=== PATIENT | female | born 2000 | race Caucasian/White ===

== ENCOUNTER 2020-12-22 11:22 | Emergency (ER) | payer SELFPAY ==
[2020-12-22] MEDS ORDERED: ONDANSETRON 4 MG/2 ML INJ IV ONE (11:57)
[2020-12-22] MEDS ORDERED: SODIUM CHLORIDE 0.9% 1000 ML 1,000 ML IV ONE ×2 (11:57→13:48)
--- NOTE | 2020-12-22 12:03 | Emergency Department Report ---
ED N/V/D HPI - General Chief complaint: Nausea/Vomiting/Diarrhea Stated complaint: NAUSEA,VOMITTING,DEYHDRATION Time Seen by Provider: 12/22/20 11:34 Source: patient Mode of arrival: Ambulatory Limitations: No Limitations - History of Present Illness Initial comments: The patient was evaluated in the emergency department for symptoms described in the history of present illness. He/she was evaluated in the context of the global COVID-19 pandemic, which necessitated consideration that the patient might be at risk for infection with the virus that causes COVID-19. Institutional protocols and algorithms that pertain to the evaluation of patients at risk for COVID-19 are in a state of rapid change based on information released by regulatory bodies including the CDC and federal and state organizations. These policies and algorithms were followed during the patient's care in the emergency department. Please note that these policies, procedures and recommendations changed on a rapid basis. 20-year-old -Marshallese female presents to the emergency room for acute on chronic nausea and vomiting for the last 4 days. Patient states she has been dealing with this off and on for about a year. Patient states she has recently moved here from [place] 2 weeks ago. She states her last menstrual. Was on the 17th of this month. She states she will have some abdominal cramping when she vomits. She denies any fever or chills. She states she has been taking the promethazine but not able to hold it down secondary to vomiting. 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 She does report a history of acid reflux. complaint: nausea, vomiting - Related Data Previous Rx's Medication Instructions Recorded Last Taken Type Ondansetron [Zofran Odt] 4 mg PO Q8HR #15 tab.rapdis 12/22/20 Unknown Rx Potassium Chloride [K-Dur] 10 meq PO QDAY #4 tablet 12/22/20 Unknown Rx Allergies Allergy/AdvReac Type Severity Reaction Status Date / Time No Known Allergies Allergy Unverified 12/22/20 11:38 ED Review of Systems ROS: Stated complaint: NAUSEA,VOMITTING,DEYHDRATION Other details as noted in HPI ED Past Medical Hx - Past Medical History Previous Medical History?: No - Surgical History Past Surgical History?: No - Social History Smoking Status: Former Smoker Substance Use Type: Alcohol, Marijuana - Medications Home Medications: Home Medications Medication Instructions Recorded Confirmed Last Taken Type Ondansetron [Zofran Odt] 4 mg PO Q8HR #15 tab.rapdis 12/22/20 Unknown Rx Potassium Chloride [K-Dur] 10 meq PO QDAY #4 tablet 12/22/20 Unknown Rx ED Physical Exam - General Limitations: No Limitations General appearance: alert, in no apparent distress - Head Head exam: Present: atraumatic, normocephalic - Eye Eye exam: Present: normal appearance - ENT ENT exam: Present: mucous membranes dry, normal external ear exam - Neck Neck exam: Present: normal inspection, full ROM - Respiratory Respiratory exam: Absent: respiratory distress, accessory muscle use - Cardiovascular Cardiovascular Exam: Present: regular rate, normal rhythm. Absent: systolic murmur, diastolic murmur, rubs, gallop - GI/Abdominal GI/Abdominal exam: Present: soft, normal bowel sounds - Back Exam Back exam: Present: normal inspection, full ROM - Neurological Exam Neurological exam: Present: alert, oriented X3, normal gait - Psychiatric Psychiatric exam: Present: normal affect, normal mood - Skin Skin exam: Present: warm, dry, intact, normal color. Absent: rash ED Course Vital Signs 12/22/20 12/22/20 11:36 15:06 Temperature 98.6 F 98.6 F Pulse Rate 74 64 Respiratory 16 16 Rate Blood Pressure 106/63 Blood Pressure 126/57 [Right] O2 Sat by Pulse 100 100 Oximetry ED Medical Decision Making - Lab Data Result diagrams: 12/22/20 12:03 12/22/20 12:03 - Medical Decision Making 20-year-old -Marshallese female presents to the emergency room for acute on chronic nausea and vomiting for the last 4 days. Patient states she has been dealing with this off and on for about a year. Patient states she has recently moved here from [place] 2 weeks ago. She states her last menstrual. Was on the 17th of this month. She states she will have some abdominal cramping when she vomits. She denies any fever or chills. She states she has been taking the promethazine but not able to hold it down secondary to vomiting. 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 She does report a history of acid reflux. IV, CBC CMP hCG normal saline IV Zofran. Critical care attestation.: If time is entered above; I have spent that time in minutes in the direct care of this critically ill patient, excluding procedure time. ED Disposition Clinical Impression: Hypokalemia, Dehydration Nausea and vomiting Qualifiers: Vomiting Intractability: intractable Disposition: 01 HOME / SELF CARE / HOMELESS Is pt being admited?: No Does the pt Need Aspirin: No Condition: Stable Instructions: Nausea and Vomiting, Adult, [id number], Dehydration, Adult, [id number] Additional Instructions: Please complete your potassium as prescribed. Zofran as needed. Follow-up in [facility] Prescriptions: Potassium Chloride [K-Dur] 10 meq PO QDAY #4 tablet Ondansetron [Zofran Odt] 4 mg PO Q8HR #15 tab.kavitha Referrals: [facility] [Provider Group] - 3-5 Days [facility] [Provider Group] - 3-5 Days Forms: Accompanied Note Time of Disposition: 15:19
[2020-12-22 12:35] LABS: Basophils # (Auto) 0.1 K/mm3 (0.0-0.1); Basophils % (Auto) 0.7 % (0.0-1.8); Eosinophils % (Auto) 0.1 % (0.0-4.3); Hematocrit 43.1 % (30.3-42.9); Hemoglobin 14.5 gm/dl (10.1-14.3); Lymphocytes # (Auto) 3.8 K/mm3 (1.2-5.4); Lymphocytes % (Auto) 28.8 % (13.4-35.0); Mean Corpuscular HGB Conc 34 % (30-34); Mean Corpuscular Volume 86 fl (79-97); Monocytes # (Auto) 0.7 K/mm3 (0.0-0.8); Monocytes % (Auto) 5.1 % (0.0-7.3); Platelet Count 373 K/mm3 (140-440); Red Cell Distribution Width 14.1 % (13.2-15.2)
[2020-12-22 12:52] LABS: Alanine Aminotransferase 13 units/L (7-56); Albumin 4.7 g/dL (3.9-5); BUN/Creatinine Ratio 9; Blood Urea Nitrogen 10 mg/dL (7-17); Calcium 9.7 mg/dL (8.4-10.2); Hemolysis Index 6
[2020-12-22] MEDS ORDERED: POTASSIUM CHLORIDE ER 20 MEQ TAB PO ONE (13:47)
[2020-12-22 15:10] VITALS: BP 126/57
== END 2020-12-22 15:30 | disposition home or self-care (01) ==
LOC: ED 11:22
DX: E87.6 Hypokalemia (principal); E86.0 Dehydration; R11.2 Nausea with vomiting, unspecified; Z87.891 Personal history of nicotine dependence; F10.20 Alcohol dependence, uncomplicated; F12.90 Cannabis use, unspecified, uncomplicated
CPT/HCPCS: 36415; 80053; 83690; 84702; 85025; 96361; 96374; 99283; J2405; J7030

== ENCOUNTER 2021-04-28 09:07 | Emergency (ER) | payer OTHER ==
[2021-04-28] MEDS ORDERED: METOCLOPRAMIDE 10 MG/2 ML INJ IV ONE (09:48)
[2021-04-28] MEDS ORDERED: SODIUM CHLORIDE 0.9% 1000 ML 1,000 ML IV ONE (09:48)
[2021-04-28] MEDS ORDERED: DICYCLOMINE 20 MG TAB PO ONE (09:48)
[2021-04-28] MEDS ORDERED: FAMOTIDINE 20 MG/2 ML INJ IV ONE (09:48)
[2021-04-28] MEDS ORDERED: diphenhydrAMINE 50 MG/ML VIAL IV ONE (09:48)
[2021-04-28] MEDS ORDERED: LIDOCAINE VISCOUS 2% 15 ML ORAL LIQD MM ONE (09:49)
[2021-04-28 10:36] LABS: Basophils # (Auto) 0.1 K/mm3 (0.0-0.1); Basophils % (Auto) 0.5 % (0.0-1.8); Eosinophils # (Auto) 0.1 K/mm3 (0.0-0.4); Eosinophils % (Auto) 0.5 % (0.0-4.3); Hematocrit 42.9 % (30.3-42.9); Hemoglobin 14.3 gm/dl (10.1-14.3); Lymphocytes # (Auto) 1.5 K/mm3 (1.2-5.4); Mean Corpuscular HGB Conc 33 % (30-34); Mean Corpuscular Volume 88 fl (79-97); Monocytes # (Auto) 0.2 K/mm3 (0.0-0.8); Monocytes % (Auto) 1.1 % (0.0-7.3); Platelet Count 350 K/mm3 (140-440); Red Blood Count 4.91 M/mm3 (3.65-5.03); Red Cell Distribution Width 13.8 % (13.2-15.2)
[2021-04-28 10:57] LABS: Alanine Aminotransferase 9 units/L (7-56); BUN/Creatinine Ratio 10; Blood Urea Nitrogen 8 mg/dL (7-17); Calcium 10.4 mg/dL (8.4-10.2); Hemolysis Index 4
[2021-04-28] MEDS ORDERED: POTASSIUM CHLORIDE ER 20 MEQ TAB PO ONE (11:14)
--- NOTE | 2021-04-28 11:18 | Emergency Department Report ---
ED N/V/D HPI - General Chief complaint: Nausea/Vomiting/Diarrhea Stated complaint: NAUSEA/DIZZINESS Time Seen by Provider: 04/28/21 09:45 Source: patient Mode of arrival: Ambulatory Limitations: No Limitations - History of Present Illness Initial comments: This is a 20-year-old female nontoxic, well nourished in appearance, no acute signs of distress presents to the ED with c/o of acute on chronic intermittent nausea and vomiting several days. Patient stated has promethazine and Zofran which she takes but has ran out. Patient describes vomiting as food content. Patient denies any abdominal pain, chest pain, short of breath, fever, chills, headache, stiff neck, numbness or tingling. Patient denies any diarrhea or constipation. Denies any blood in stool. Patient denies any recent travels. Patient denies any drug allergies. MD complaint: nausea, vomiting -: days(s) Description of Vomiting: food contents Associated Abdominal Pain: No Radiation: none Pain Scale: 0 Improves with: none Worsens with: none Associated Symptoms: nausea/vomiting. denies: myalgias, chest pain, cough, diaphoresis, fever/chills, headaches, loss of appetite, malaise, rash, dysuria, shortness of breath, syncope - Related Data Previous Rx's Medication Instructions Recorded Last Taken Type Ondansetron [Zofran Odt] 4 mg PO Q8HR #15 tab.rapdis 12/22/20 Unknown Rx Potassium Chloride [K-Dur] 10 meq PO QDAY #4 tablet 12/22/20 Unknown Rx Ondansetron [Zofran Odt] 4 mg PO Q8HR PRN #12 tab.rapdis 04/28/21 Unknown Rx Allergies Allergy/AdvReac Type Severity Reaction Status Date / Time No Known Allergies Allergy Unverified 12/22/20 11:38 ED Review of Systems ROS: Stated complaint: NAUSEA/DIZZINESS Other details as noted in HPI Comment: All other systems reviewed and negative Constitutional: denies: chills, fever Eyes: denies: eye pain, eye discharge, vision change ENT: denies: ear pain, throat pain Respiratory: denies: cough, shortness of breath, wheezing Cardiovascular: denies: chest pain, palpitations Endocrine: no symptoms reported Gastrointestinal: nausea, vomiting. denies: abdominal pain, diarrhea, constipation, hematemesis, melena, hematochezia Genitourinary: denies: urgency, dysuria, discharge Musculoskeletal: denies: back pain, joint swelling, arthralgia Skin: denies: rash, lesions Neurological: denies: headache, weakness, paresthesias Psychiatric: denies: anxiety, depression Hematological/Lymphatic: denies: easy bleeding, easy bruising ED Past Medical Hx - Past Medical History Previous Medical History?: Yes Additional medical history: Gastritis - Surgical History Past Surgical History?: No - Social History Smoking Status: Never Smoker Substance Use Type: Prescribed - Medications Home Medications: Home Medications Medication Instructions Recorded Confirmed Last Taken Type Ondansetron [Zofran Odt] 4 mg PO Q8HR #15 tab.rapdis 12/22/20 Unknown Rx Potassium Chloride [K-Dur] 10 meq PO QDAY #4 tablet 12/22/20 Unknown Rx Ondansetron [Zofran Odt] 4 mg PO Q8HR PRN #12 tab.rapdis 04/28/21 Unknown Rx ED Physical Exam - General Limitations: No Limitations General appearance: alert, in no apparent distress - Head Head exam: Present: atraumatic, normocephalic - Eye Eye exam: Present: normal appearance - Neck Neck exam: Present: normal inspection, full ROM. Absent: lymphadenopathy - Respiratory Respiratory exam: Present: normal lung sounds bilaterally. Absent: respiratory distress, wheezes, rales, rhonchi, stridor, chest wall tenderness, accessory muscle use, decreased breath sounds, prolonged expiratory - Cardiovascular Cardiovascular Exam: Present: regular rate, normal rhythm, normal heart sounds. Absent: bradycardia, tachycardia, irregular rhythm, systolic murmur, diastolic murmur, rubs, gallop - GI/Abdominal GI/Abdominal exam: Present: soft, normal bowel sounds. Absent: distended, tenderness, guarding, rebound, rigid - Extremities Exam Extremities exam: Present: full ROM - Back Exam Back exam: Present: normal inspection, full ROM. Absent: tenderness, CVA tenderness (R), CVA tenderness (L), muscle spasm, paraspinal tenderness, vertebral tenderness, rash noted - Neurological Exam Neurological exam: Present: alert, oriented X3, normal gait - Psychiatric Psychiatric exam: Present: normal affect, normal mood - Skin Skin exam: Present: warm, dry, intact, normal color. Absent: rash ED Course Vital Signs 04/28/21 09:24 Temperature 98.6 F Pulse Rate 52 L Respiratory 22 Rate Blood Pressure 127/82 Blood Pressure 127/82 [Right] O2 Sat by Pulse 100 Oximetry - Reevaluation(s) Reevaluation #1: 04/28/21 11:18 Patient is speaking in full sentences with no signs of distress noted. ED Medical Decision Making - Lab Data Result diagrams: 04/28/21 10:15 04/28/21 10:15 Lab Results 04/28/21 04/28/21 04/28/21 Range/Units 10:15 10:15 10:15 WBC 16.1 H (4.5-11.0) K/mm3 RBC 4.91 (3.65-5.03) M/mm3 Hgb 14.3 (10.1-14.3) gm/dl Hct 42.9 (30.3-42.9) % MCV 88 (79-97) fl MCH 29 (28-32) pg MCHC 33 (30-34) % RDW 13.8 (13.2-15.2) % Plt Count 350 (140-440) K/mm3 Lymph % (Auto) 9.0 L (13.4-35.0) % Howell % (Auto) 1.1 (0.0-7.3) % Eos % (Auto) 0.5 (0.0-4.3) % Baso % (Auto) 0.5 (0.0-1.8) % Lymph # (Auto) 1.5 (1.2-5.4) K/mm3 Howell # (Auto) 0.2 (0.0-0.8) K/mm3 Eos # (Auto) 0.1 (0.0-0.4) K/mm3 Baso # (Auto) 0.1 (0.0-0.1) K/mm3 Seg Neutrophils % 88.9 H (40.0-70.0) % Seg Neutrophils # 14.4 H (1.8-7.7) K/mm3 Sodium 138 (137-145) mmol/L Potassium 3.1 L (3.6-5.0) mmol/L Chloride 100.8 (98-107) mmol/L Carbon Dioxide 18 L (22-30) mmol/L Anion Gap 22 mmol/L BUN 8 (7-17) mg/dL Creatinine 0.8 (0.6-1.2) mg/dL Estimated GFR > 60 ml/min BUN/Creatinine Ratio 10 % Glucose 110 H (65-100) mg/dL Calcium 10.4 H (8.4-10.2) mg/dL Total Bilirubin 1.20 (0.1-1.2) mg/dL AST 15 (5-40) units/L ALT 9 (7-56) units/L Alkaline Phosphatase 68 (35-129) units/L Total Protein 9.1 H (6.3-8.2) g/dL Albumin 5.0 (3.9-5) g/dL Albumin/Globulin Ratio 1.2 % Lipase 10 L (13-60) units/L HCG, Qual Negative (Negative) Urine Color (Yellow) Urine Turbidity (Clear) Urine pH (5.0-7.0) Ur Specific [place] (1.003-1.030) Urine Protein (Negative) mg/dL Urine Glucose (UA) (Negative) mg/dL Urine Ketones (Negative) mg/dL Urine Blood (Negative) Urine Nitrite (Negative) Urine Bilirubin (Negative) Urine Urobilinogen (<2.0) mg/dL Ur Leukocyte Esterase (Negative) Urine WBC (Auto) (0.0-6.0) /HPF Urine RBC (Auto) (0.0-6.0) /HPF U Epithel Cells (Auto) (0-13.0) /HPF Urine Mucus /HPF 04/28/21 Range/Units 11:20 WBC (4.5-11.0) K/mm3 RBC (3.65-5.03) M/mm3 Hgb (10.1-14.3) gm/dl Hct (30.3-42.9) % MCV (79-97) fl MCH (28-32) pg MCHC (30-34) % RDW (13.2-15.2) % Plt Count (140-440) K/mm3 Lymph % (Auto) (13.4-35.0) % Howell % (Auto) (0.0-7.3) % Eos % (Auto) (0.0-4.3) % Baso % (Auto) (0.0-1.8) % Lymph # (Auto) (1.2-5.4) K/mm3 Howell # (Auto) (0.0-0.8) K/mm3 Eos # (Auto) (0.0-0.4) K/mm3 Baso # (Auto) (0.0-0.1) K/mm3 Seg Neutrophils % (40.0-70.0) % Seg Neutrophils # (1.8-7.7) K/mm3 Sodium (137-145) mmol/L Potassium (3.6-5.0) mmol/L Chloride (98-107) mmol/L Carbon Dioxide (22-30) mmol/L Anion Gap mmol/L BUN (7-17) mg/dL Creatinine (0.6-1.2) mg/dL Estimated GFR ml/min BUN/Creatinine Ratio % Glucose (65-100) mg/dL Calcium (8.4-10.2) mg/dL Total Bilirubin (0.1-1.2) mg/dL AST (5-40) units/L ALT (7-56) units/L Alkaline Phosphatase (35-129) units/L Total Protein (6.3-8.2) g/dL Albumin (3.9-5) g/dL Albumin/Globulin Ratio % Lipase (13-60) units/L HCG, Qual (Negative) Urine Color Yellow (Yellow) Urine Turbidity Clear (Clear) Urine pH 6.0 (5.0-7.0) Ur Specific [place] 1.016 (1.003-1.030) Urine Protein 30 mg/dl (Negative) mg/dL Urine Glucose (UA) Neg (Negative) mg/dL Urine Ketones 80 (Negative) mg/dL Urine Blood Neg (Negative) Urine Nitrite Neg (Negative) Urine Bilirubin Neg (Negative) Urine Urobilinogen < 2.0 (<2.0) mg/dL Ur Leukocyte Esterase Neg (Negative) Urine WBC (Auto) 8.0 H (0.0-6.0) /HPF Urine RBC (Auto) 2.0 (0.0-6.0) /HPF U Epithel Cells (Auto) 1.0 (0-13.0) /HPF Urine Mucus Few /HPF - Radiology Data [facility] [address] [place] [address] XRay Report Signed Patient: LORELEI CURRY MR#: [id number] : 2000 Acct:[id number] Age/Sex: 20 / F ADM Date: 04/28/21 Loc: ED Attending Dr: Ordering Physician: ROBBIN HERNANDEZ NP Date of Service: 04/28/21 Procedure(s): XR abd series w cxr 1V Accession Number(s): [id number] cc: ROBBIN HERNANDEZ NP Fluoro Time In Minutes: ABDOMEN 3 VIEW(S) INDICATION: Nausea with vomiting. COMPARISON: None available. FINDINGS: Bowel gas pattern: No significant abnormality. Free air: None seen. Stones: None seen. Chest: No acute findings. Additional Findings: No additional significant findings. IMPRESSION: 1. No acute findings. Signer Name: Kevin Williamson MD Signed: 04/28/2021 11:14 AM Workstation Name: [id number] Transcribed By: FLETCHER Dictated By: Kevin Williamson MD Electronically Authenticated By: Kevin Williamson MD Signed Date/Time: 04/28/21 111 DD/ 13 TD/TT: - Medical Decision Making This is a 20-year-old female that presents with nausea and vomiting. Patient is stable and was examined by me. There is no abdominal tenderness. Negative signs of symptoms of appendicitis, cholecystitis or acute abdomen. Labs obtained. UA obtained. Xr abdomen/chest xray obtained and dictated by the radiologist. Patient is notified of the report with no questions noted by the patient. Vital signs are stable prior to discharge. Patient received medical treatment in the ED which patient stated symptoms has resovled and subsided. A by mouth challenge has been obtained and patient tolerated well with no nausea vomiting. Patient was also instructed to Follow-up with a primary care doctor in 3-5 days or if symptoms worsen and continue return to emergency room as soon as possible. At time of discharge, the patient does not seem toxic or ill in appearance. No acute signs of distress noted. Patient agrees to discharge treatment plan of care. No further questions noted by the patient. Critical care attestation.: If time is entered above; I have spent that time in minutes in the direct care of this critically ill patient, excluding procedure time. ED Disposition Clinical Impression: Nausea & vomiting Qualifiers: Vomiting type: unspecified Qualified Code(s): R11.2 - Nausea with vomiting, unspecified Disposition: HOME / SELF CARE / HOMELESS Is pt being admited?: No Does the pt Need Aspirin: No Condition: Stable Instructions: Nausea and Vomiting, Adult Additional Instructions: Follow-up with a primary care and canary raiser doctor in 3-5 days or if symptoms worsen and continue return to emergency room as soon as possible. Prescriptions: Ondansetron [Zofran Odt] 4 mg PO Q8HR PRN #12 tab.rapdis PRN Reason: Nausea Referrals: PRIMARY MD TAYLOR [Primary Care Provider] - 3-5 Days NERISSA PADILLA MD [Staff Physician] - 3-5 Days [facility] [Provider Group] - 3-5 Days Forms: Work/School Release Form(ED) Time of Disposition: 12:22
[2021-04-28 11:32] LABS: Bilirubin,Urine NEG (Negative); Blood,Urine NEG (Negative); Color,Urine Yellow (Yellow); Mucus,Urine FEW /HPF; Urobilinogen,Urine < 2.0 mg/dL (<2.0)
[2021-04-28 12:39] VITALS: BP 124/80
== END 2021-04-28 12:39 | disposition home or self-care (01) ==
LOC: ED 09:07
DX: R11.2 Nausea with vomiting, unspecified (principal)
CPT/HCPCS: 36415; 74022; 80053; 81001; 83690; 84703; 85025; 96361; 96374; 96375; 99284; J1200; J2765; J3490; J7030; Q0162

== ENCOUNTER 2021-04-29 06:37 | Emergency (ER) | payer OTHER ==
[2021-04-29] MEDS ORDERED: KETOROLAC 30 MG/1 ML INJ IV ONE (06:50)
[2021-04-29] MEDS ORDERED: SODIUM CHLORIDE 0.9% 1000 ML 1,000 ML IV ONE ×2 (06:50→07:54)
[2021-04-29] MEDS ORDERED: ONDANSETRON 4 MG/2 ML INJ IV ONE ×2 (06:50→07:54)
--- NOTE | 2021-04-29 07:07 | Emergency Department Report ---
ED Abdominal Pain HPI - General Chief Complaint: Abdominal Pain Stated Complaint: CRAMPING/DEHYDRATED/SOB PUI?: No Time Seen by Provider: 04/29/21 06:50 Source: patient Mode of arrival: Ambulatory Limitations: No Limitations - History of Present Illness Initial Comments: 20 yo AA comes to ER with nausea/vomiting. Actively vomiting on admit to triage. She was seen here yesterday for the same. Endorses generalized abd pain. Pt t achypnic on arrival. No diarrhea. No constipation. No dysuria or back pain. No vag d/c. No fever/ chills. She was also seen in 12/20 for same. She states no one has told her why she has N/V. She denies THC use. Preg neg yesterday. Lipase normal yest. U/A normal yesterday. Denies hx DM. She states she has been to "so many places for the same thing, and no one tells me what is wrong." MD Complaint: abdominal pain -: days(s) Location: diffuse Severity scale (0 -10): 3 Quality: cramping Consistency: constant Improves With: nothing Worsens With: eating Associated Symptoms: denies other symptoms, nausea, vomiting, constipation (hx of). denies: diarrhea, fever, chills, dysuria, hematemesis, hematochezia, melena, hematuria, anorexia, syncope - Related Data Previous Rx's Medication Instructions Recorded Last Taken Type Ondansetron [Zofran Odt] 4 mg PO Q8HR #15 tab.rapdis 12/22/20 Unknown Rx Potassium Chloride [K-Dur] 10 meq PO QDAY #4 tablet 12/22/20 Unknown Rx Ondansetron [Zofran Odt] 4 mg PO Q8HR PRN #12 tab.rapdis 04/28/21 Unknown Rx Allergies Allergy/AdvReac Type Severity Reaction Status Date / Time No Known Allergies Allergy Unverified 12/22/20 11:38 ED Review of Systems ROS: Stated complaint: CRAMPING/DEHYDRATED/SOB Other details as noted in HPI Comment: All other systems reviewed and negative ED Past Medical Hx - Past Medical History Previous Medical History?: Yes Additional medical history: Gastritis - Surgical History Past Surgical History?: No - Family History Family history: no significant - Social History Smoking Status: Never Smoker - Medications Home Medications: Home Medications Medication Instructions Recorded Confirmed Last Taken Type Ondansetron [Zofran Odt] 4 mg PO Q8HR #15 tab.rapdis 12/22/20 Unknown Rx Potassium Chloride [K-Dur] 10 meq PO QDAY #4 tablet 12/22/20 Unknown Rx Ondansetron [Zofran Odt] 4 mg PO Q8HR PRN #12 tab.rapdis 04/28/21 Unknown Rx ED Physical Exam - General Limitations: No Limitations General appearance: alert, in no apparent distress - Head Head exam: Present: atraumatic, normocephalic - Eye Eye exam: Present: normal appearance - ENT ENT exam: Present: mucous membranes moist - Neck Neck exam: Present: normal inspection - Respiratory Respiratory exam: Present: normal lung sounds bilaterally. Absent: respiratory distress - Cardiovascular Cardiovascular Exam: Present: regular rate, normal rhythm. Absent: systolic murmur, diastolic murmur, rubs, gallop - GI/Abdominal GI/Abdominal exam: Present: soft, tenderness, normal bowel sounds - Extremities Exam Extremities exam: Present: normal inspection - Back Exam Back exam: Present: normal inspection - Neurological Exam Neurological exam: Present: alert, oriented X3 - Psychiatric Psychiatric exam: Present: normal affect, normal mood - Skin Skin exam: Present: warm, dry, intact, normal color. Absent: rash ED Course Vital Signs 04/29/21 04/29/21 06:40 08:36 Temperature 97.7 F 97.9 F Pulse Rate 92 H 90 Respiratory 26 H 16 Rate Blood Pressure 120/73 156/89 [Right] O2 Sat by Pulse 95 95 Oximetry ED Medical Decision Making - Lab Data Result diagrams: 04/29/21 07:00 04/29/21 07:00 - Radiology Data Radiology results: report reviewed, image reviewed - Medical Decision Making Lab Results 04/29/21 04/29/21 Range/Units 07:00 07:00 WBC 13.6 H (4.5-11.0) K/mm3 RBC 4.77 (3.65-5.03) M/mm3 Hgb 14.0 (10.1-14.3) gm/dl Hct 41.2 (30.3-42.9) % MCV 86 (79-97) fl MCH 29 (28-32) pg MCHC 34 (30-34) % RDW 14.2 (13.2-15.2) % Plt Count 335 (140-440) K/mm3 Sodium 138 (137-145) mmol/L Potassium 3.0 L (3.6-5.0) mmol/L Chloride 100.4 (98-107) mmol/L Carbon Dioxide 18 L (22-30) mmol/L Anion Gap 23 mmol/L BUN 9 (7-17) mg/dL Creatinine 1.1 (0.6-1.2) mg/dL Estimated GFR > 60 ml/min BUN/Creatinine Ratio 8 % Glucose 122 H (65-100) mg/dL Calcium 9.8 (8.4-10.2) mg/dL Vital Signs 04/29/21 04/29/21 06:40 08:36 Temperature 97.7 F 97.9 F Pulse Rate 92 H 90 Respiratory 26 H 16 Rate Blood Pressure 120/73 156/89 [Right] O2 Sat by Pulse 95 95 Oximetry see notes/labs/ua from yesterday - includes neg preg labs noted K replaced NS x 2L/ zofran x 2 CT noted- done given inc WBC yesterday and ongoing n/v to rule out acute etiology of problem. She has no prior CT on record. on d/c exam pt is taking PO. Pt educated on dc plan of care including diet/activity/hydration/meds and follow up. She verbalizes understanding of plan of care. - Differential Diagnosis ro choley/appy/perf. ulcer v gastritis v gastroparesis Critical care attestation.: If time is entered above; I have spent that time in minutes in the direct care of this critically ill patient, excluding procedure time. ED Disposition Clinical Impression: Chronic nausea Disposition: 01 HOME / SELF CARE / HOMELESS Is pt being admited?: No Does the pt Need Aspirin: No Condition: Stable Instructions: Nausea and Vomiting, Adult, Abdominal Pain (ED) Additional Instructions: continue meds given to you yesterday FOLLOW UP WITH GI AND PCP MD FOR ADDITIONAL CARE AND WORK UP REFERRALS BELOW Referrals: PRIMARY CARE, [Primary Care Provider] - 3-5 Days NERISSA PADILLA MD [Staff Physician] - 3-5 Days JACK SPENCE MD [Staff Physician] - 3-5 Days Time of Disposition: 07:24
[2021-04-29 07:10] LABS: Hematocrit 41.2 % (30.3-42.9); Mean Corpuscular HGB Conc 34 % (30-34); Mean Corpuscular Volume 86 fl (79-97); Platelet Count 335 K/mm3 (140-440); Red Blood Count 4.77 M/mm3 (3.65-5.03); Red Cell Distribution Width 14.2 % (13.2-15.2)
[2021-04-29 07:27] LABS: BUN/Creatinine Ratio 8; Blood Urea Nitrogen 9 mg/dL (7-17); Calcium 9.8 mg/dL (8.4-10.2); Hemolysis Index 11
[2021-04-29] MEDS ORDERED: POTASSIUM CHLORIDE ER 20 MEQ TAB PO ONE (07:29)
[2021-04-29] MEDS ORDERED: MAGNESIUM SULFATE 2 GM/50 ML BAG IV ONE (07:29)
--- NOTE | 2021-04-29 08:14 | Cat Scan Report ---
CT ABDOMEN AND PELVIS WITH CONTRAST INDICATION / CLINICAL INFORMATION: n/v; generalized abd pain; wbc 16 yesterday Omni 300 100 ml. TECHNIQUE: Axial CT images were obtained through the abdomen and pelvis after 100 cc of Omnipaque 300 IV contras t. Sagittal and coronal reformatted images. All CT scans at this location are performed using CT dose reduction for ALARA by means of automated exposure control. COMPARISON: None available. FINDINGS: LOWER CHEST: No significant abnormality. LIVER: No significant abnormality. GALLBLADDER: No significant abnormality. BILE DUCTS: No significant abnormality. PANCREAS: No significant abnormality. SPLEEN: No significant abnormality. ADRENALS: No significant abnormality. RIGHT KIDNEY and URETER: No significant abnormality. LEFT KIDNEY and URETER: No significant abnormality. STOMACH and SMALL BOWEL: No significant abnormality. COLON: No significant abnormality. APPENDIX: No significant abnormality. PERITONEUM: No free fluid. No free air. No fluid collection. LYMPH NODES: No significant adenopathy. AORTA and ARTERIES: No significant abnormality. IVC and VEINS: No significant abnormality. URINARY BLADDER: No significant abnormality. REPRODUCTIVE ORGANS: No significant abnormality. ADDITIONAL FINDINGS: None. SKELETAL SYSTEM: No significant abnormality. IMPRESSION: No significant abnormality. Signer Name: Geoff Alvarado Jr, MD Signed: 04/29/2021 8:09 AM Workstation Name: [id number]
[2021-04-29 08:44] VITALS: BP 156/89
[2021-04-29 09:16] LABS: Large Platelets 1+; Platelet Estimate Consistent w Auto
[2021-04-29 09:19] LABS: Band Neutrophils # (Manual) 45.1 K/mm3; Myelocytes # (Manual) 45.1 K/mm3
[2021-04-29 09:20] LABS: Basophils % (Manual) 1 % (0.0-1.8); Eosinophils % (Manual) 1 % (0.0-4.3); Monocytes % (Manual) 4 % (0.0-7.3); Promyelocytes # (Manual) 45.1 K/mm3
== END 2021-04-29 09:04 | disposition home or self-care (01) ==
LOC: ED 06:37
DX: R11.0 Nausea (principal); K29.70 Gastritis, unspecified, without bleeding
CPT/HCPCS: 36415; 74177; 80048; 85007; 85025; 96361; 96365; 96375; 96376; 99284; J1885; J2405; J3475; J7030; Q9967; Q0162